=== PATIENT | male | born 1940 | race Caucasian/White ===

== ENCOUNTER → 2016-11-11 | Outpatient (CLI) | payer OTHER ==
[~2016-11-11] MED LIST: ASPI-589 PO; ATOR-24 PO; BIMA0.01 OP; CYNI1000 PO; INSPMPNVLG; METO50TA7 PO
[2016-11-11 13:01] LABS: BASO % 1.1 %; BASO ABS # 0.07 K/uL (0-0.2); COMPLETE YES; EOS % 2.3 %; HEMATOCRIT 35.9 % (42-52); IG% 0.2 %; LYMPH % 21.2 %; LYMPH ABS # 1.38 K/uL (1.2-3.4); MEAN CELL VOLUME 87.6 fL (80-100); MEAN CORPUSCULAR HEMOGLOBIN 27.8 pg (25-34); MEAN CORPUSCULAR HGB CONC 31.8 g/dl (32-36); MEAN PLATELET VOLUME 9.4 fL (7.4-10.4); MONO % 14.3 %; NEUT % 60.9 %; PLATELET COUNT 243 K/uL (130-400)
[2016-11-11 13:32] LABS: ESTIMATED AVERAGE GLUCOSE 171 mg/dl; HA1C FLAG Normal (Normal)
[2016-11-11 13:36] LABS: ALKALINE PHOSPHATASE 70 U/L (45-117); ALT/SGPT 25 U/L (12-78); AST/SGOT 10 U/L (15-37); BLOOD UREA NITROGEN 20 mg/dl (7-18); BUN/CREATININE RATIO 14.4 (10-20); CALCIUM 8.4 mg/dl (8.5-10.1); CARBON DIOXIDE 30 mmol/L (21-32); CHLORIDE 108 mmol/L (98-107); GLUCOSE 142 mg/dl (70-99); HDL CHOLESTEROL 57 mg/dl; MAGNESIUM 2.8 mg/dl (1.8-2.4); POTASSIUM 4.5 mmol/L (3.5-5.1); SODIUM 143 mmol/L (136-145)
[2016-11-11 13:39] LABS: ALB/GLOB RATIO 0.9 (0.9-2); CHOLESTEROL 124 mg/dl (0-200); CHOLESTEROL/HDL RATIO 2.2; LDL CHOLESTEROL CALCULATED 50 mg/dl; TRIGLYCERIDES 83 mg/dl (0-150); VERY LOW DENSITY LIPOPROT CALC 17 mg/dl
== END | disposition home or self-care (01) ==
LOC: C.LABMFLN 08:28
PROVIDERS: ATTEND Family Medicine
DX: D64.9 Anemia, unspecified (principal); E10.319 Type 1 diabetes mellitus with unspecified diabetic retinopathy without macular edema; E78.5 Hyperlipidemia, unspecified; I49.3 Ventricular premature depolarization

== ENCOUNTER → 2017-05-02 | Outpatient (CLI) | payer OTHER ==
[2017-05-03 07:08] LABS: ESTIMATED AVERAGE GLUCOSE 177 mg/dl; HA1C FLAG Normal (Normal)
== END | disposition home or self-care (01) ==
LOC: C.LABMFLN 11:07
PROVIDERS: ATTEND Physician Assistant
DX: E10.9 Type 1 diabetes mellitus without complications (principal)

== ENCOUNTER 2017-06-01 06:33 | Observation (INO) | payer OTHER ==
[2017-05-27 15:39] VITALS: BMI 26.0
[~2017-06-01] VITALS: Ht 172.7 cm; Wt 77.8 kg
[~2017-06-01 06:33] MED LIST changes: -BIMA0.01 OP; +BIMA0.01 OPR; +CYAN500T13 PO; -CYNI1000 PO; +LACTATED RINGER'S 1000ML 1,000 ML IV SCH; +MAGN200T6 PO; -METO50TA7 PO; +METO50TA8 PO
[2017-06-01 07:08] VITALS: BP 172/81; PULSE 108; TEMP 36.9; O2SAT 97; BMI 26.0
[2017-06-01] MEDS ORDERED: PROPOFOL IV EMULSION 10 MG/ML 100 ML VIAL IV ONE (07:43)
[2017-06-01] MEDS ORDERED: FENTANYL CITRATE INJ 50 MCG/1 ML 2 ML VIAL ONE (08:02)
[2017-06-01] MEDS ORDERED: PROPOFOL IV EMULSION 10 MG/ML 20 ML VIAL IV ONE (08:02)
[2017-06-01] MEDS ORDERED: LIDOCAINE HCL 2% 2 ML VIAL (20MG/ML) ONE ×2 (08:02→12:24)
[2017-06-01] MEDS ORDERED: MIDAZOLAM HCL 1 MG/ML 2ML VIAL ONE ×2 (08:02→09:42)
--- NOTE | 2017-06-01 08:13 | History & Physical Bridge Note ---
H&P Re-Evaluation Bridge Note: I have examined the patient, reviewed the History & Physical and in the interval since the performance of the History & Physical I have noted the following changes of clinical significance: No changes noted
[2017-06-01] MEDS ORDERED: FENTANYL CITRATE INJ 50 MCG/1 ML 2 ML VIAL IV PRN (08:30)
[2017-06-01] MEDS ORDERED: EpHEDrine SULFATE INJ 50 MG/ML AMP IV PRN (08:30)
[2017-06-01] MEDS ORDERED: HYDROmorphone INJ 1 MG/ML SYR IV PRN (08:30)
[2017-06-01] MEDS ORDERED: PHENYLEPHRINE 100MCG/ML 5ML SYR IV PRN (08:30)
[2017-06-01] MEDS ORDERED: ATROPINE SULFATE 0.1 MG/ML 5ML SYR IV PRN (08:30)
[2017-06-01] MEDS ORDERED: ONDANSETRON INJ 2 MG/ML 2 ML VIAL IV PRN (08:30)
[2017-06-01] MEDS ORDERED: HEPARIN SOD (PORCINE) 1000 UNIT/ML 10 ML VIAL ONE ×2 (08:45→12:25)
[2017-06-01] MEDS ORDERED: HEPARIN 25000 UNIT/500 ML D5W ONE (10:15)
--- NOTE | 2017-06-01 11:57 | [facility] Post Operative Brief Note ---
Immediate Operative Summary Operative Date Jun 01, 2017. Pre-Operative Diagnosis pvcs Post-Operative Diagnosis pvcs Procedure(s) Performed PVCs ablation, 3d mapping RVOT and LVOT regions, EPS Surgeon tu flores Mental Health Worker Surgeon(s) none Estimated Blood Loss <10cc Findings see official report Fluids (cc crystalloids) 1400cc Specimens none Drains none Anesthesia 2.5mg versed, 25mcg fentatnyl, 500mg propofol Complication(s) None Disposition PCU
--- NOTE | 2017-06-01 12:02 | Discharge Instructions ---
Discharge Instructions Date of Service Jun 01, 2017. Admission Reason for Admission: Symptomatic Premature Ventricular Contraction Discharge Discharge Diagnosis / Problem: pvc Discharge Goals Goal(s): Improve function Activity Recommendations Activity Limitations: as noted below Lifting Limitations: no more than 10 pounds (no heavy lifting or squating for 1 week) Shower/Bathe: tomorrow Driving or Machine Use: resume 1 day after discharge . Instructions / Follow-Up Instructions / Follow-Up ACTIVITY RECOMMENDATIONS: It is common to feel weak and fatigue for a few days. * Do not drive or operate any motorized equipment for the next 1 day. * Limit stair usage (2 or 3 trips a day only) for the next three days. * Do not lift anything heavier than 10 pounds for the next three days. * Do not engage in vigorous exercise or any sports for the next five days. * You may shower the day after your procedure, but do not immerse the area for three days. Cleanse the site gently with soap and water. SPECIAL CARE INSTRUCTIONS: * You may replace the pressure dressing or band-aid the morning after the procedure. * After your procedure, it is normal to have a small bruise or small lump at the site. Examine your site daily for any change in the bruise or lump, redness, swelling, drainage or numbness. Notify your doctor if any change. BLEEDING: * If there is a small amount of bleeding at the site, lie down and apply firm pressure with a clean cloth for ten minutes. When the bleeding stops, lie quietly keeping the procedure limb straight for six hours. Notify your doctor as soon as possible. * If the bleeding does not stop after ten minutes or if there is a large amount of bleeding or spurting, call 911 immediately. Continue to lie down and hold firm pressure until help arrives. SKIN IRRITATION: * You may experience some redness and/or swelling in the area where radiation was administered. If any skin irritation occurs, please contact your family physician. FOLLOW UP VISIT: Keep any scheduled doctor appointments. Current Hospital Diet Patient's current hospital diet: Diabetes Type 1 Diet, AHA Diet (Heart Healthy) Discharge Diet Recommended Diet: Diabetes Type 1 Diet Procedures Procedures Performed: PVCs ablation, 3d mapping RVOT and LVOT regions, EPS Pending Studies Studies pending at discharge: no Laboratory Results Hemoglobin A1c Test 05/02/17 11:10 Range/Units Estimated Average Glucose 177 mg/dl Hemoglobin A1c 7.8 H 4.5-5.6 % Medical Emergencies . Who to Call and When: Medical Emergencies: If at any time you feel your situation is an emergency, please call 911 immediately. . Non-Emergent Contact Non-Emergency issues call your: Lead Presser . . "Provider Documentation" section prepared by Haritha Corral. . VTE Core Measure Inpt VTE Proph given/why not?: Treatment not indicated
--- NOTE | 2017-06-01 12:08 | Discharge Summary ---
Discharge Summary Date of Service Jun 01, 2017. 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 PAC HLD DM on insulin pump Procedures: PVC ablation, EPS, 3d mapping of RVOT and LVOT regions Medication Reconciliation Continued Medications: Aspirin (Aspirin Adult Low Dose) 81 Mg Tab 1 TAB PO QPM PT HS DIRECTIONS FROM SURGEON Atorvastatin (Lipitor) 40 Mg Tab 1 TAB PO QPM for 30 Days, TAB 5 Refills Bimatoprost (Lumigan) 0.01 % Malissa 1 DROPS OPR HS for 90 Days, #7.5 ML 3 Refills Cyanocobalamin (Vitamin B12 500MCG) 500 Mcg Tab 500 MCG PO QPM, TAB Insulin Aspart (novoLOG INSULIN PUMP ) 1 Ea Inj 1 EA N/A UD, EA Magnesium Citrate (mg Suppleme (Magnesium Citrate) 200 Mg Tab 400 MG PO QPM Discontinued Medications: Metoprolol Succ (Toprol Xl) (Toprol-Xl) 50 Mg Tabcr 0.5 TAB PO QPM for 30 Days, TAB 5 Refills PT HAS INSTRUCTIONS FROM SURGEON Admission Information Physical Exam (per Admitting): aaox3, NAD NC/AT, EOMI Supple, No JVD Nrl S1/S2, no murmur, +PVCs CTA b/l no w/r/r soft nt/nd no edema b/l LE no focal deficits skin intact Hospital Course Pt admitted for elective PVC ablation due to frequent unifocal symptomatic PVCs. Pt underwent procedure without any complications-PVCs mapped to cecilia- septal region of the LV about 1 cm below the AV. Pt monitored overnight and discharged home in stable condition off metoprolol. Total time spent on discharge = 30 minutes This includes examination of the patient, discharge planning, medication reconciliation, and communication with other providers. Discharge Instructions ACTIVITY RECOMMENDATIONS: It is common to feel weak and fatigue for a few days. * Do not drive or operate any motorized equipment for the next 1 day. * Limit stair usage (2 or 3 trips a day only) for the next three days. * Do not lift anything heavier than 10 pounds for the next three days. * Do not engage in vigorous exercise or any sports for the next five days. * You may shower the day after your procedure, but do not immerse the area for three days. Cleanse the site gently with soap and water. SPECIAL CARE INSTRUCTIONS: * You may replace the pressure dressing or band-aid the morning after the procedure. * After your procedure, it is normal to have a small bruise or small lump at the site. Examine your site daily for any change in the bruise or lump, redness, swelling, drainage or numbness. Notify your doctor if any change. BLEEDING: * If there is a small amount of bleeding at the site, lie down and apply firm pressure with a clean cloth for ten minutes. When the bleeding stops, lie quietly keeping the procedure limb straight for six hours. Notify your doctor as soon as possible. * If the bleeding does not stop after ten minutes or if there is a large amount of bleeding or spurting, call 911 immediately. Continue to lie down and hold firm pressure until help arrives. SKIN IRRITATION: * You may experience some redness and/or swelling in the area where radiation was administered. If any skin irritation occurs, please contact your family physician. FOLLOW UP VISIT: Keep any scheduled doctor appointments.
[2017-06-01] MEDS ORDERED: IV FLUIDS COMPLETED PRN (12:15)
[2017-06-01] MEDS ORDERED: PHENYLEPHRINE 100MCG/ML 5ML SYR ONE (12:25)
--- NOTE | 2017-06-01 12:59 | Anesthesiology Progress Note ---
Anesthesia Post Op Note Date & Time Jun 01, 2017 at 12:59 Vital Signs Pain Intensity: 0 Vital Signs Past 12 Hours Date Time Temp Pulse Resp B/P (MAP) Pulse Ox O2 Delivery O2 Flow Rate FiO2 06/01/17 12:50 91 16 126/71 (89) 96 Room Air 143/65 (91) 06/01/17 12:35 89 16 133/77 (95) 96 Room Air 138/63 (88) 06/01/17 12:19 84 16 126/74 (91) 98 Room Air 06/01/17 12:09 98 16 137/83 (101) 98 Room Air 06/01/17 11:59 96 16 143/83 (103) 98 Room Air 06/01/17 07:08 36.9 108 18 172/81 (111) 97 Room Air Notes Mental Status: alert / awake / arousable, participated in evaluation Pt Amnestic to Procedure: Yes Nausea / Vomiting: adequately controlled Pain: adequately controlled Airway Patency, RR, SpO2: stable & adequate BP & HR: stable & adequate Hydration State: stable & adequate Anesthetic Complications: no major complications apparent
--- NOTE | 2017-06-01 13:47 | OPERATIVE REPORT ---
DATE OF OPERATION: 06/01/2017 PREOPERATIVE DIAGNOSIS: Symptomatic premature ventricular contractions. POSTOPERATIVE DIAGNOSIS: Same. PROCEDURE: Electrophysiology study, 3D mapping of the right ventricular outflow tract and left ventricular outflow tract for mapping of the PVCs, radiofrequency ablation of PVCs coming from the anteroseptal side of the left ventricle about a cm below the aortic valve. SURGEON: Haritha Corral. HUMAN SERVICES PROGRAM SPECIALIST: None. ANESTHESIA: Monitored anesthetic care administered via anesthesiology. Total of 2.5 mg of Versed, 25 mcg of fentanyl, 500 mg of Propofol. IV FLUIDS: 1300 mL. BLOOD LOSS: Less than 10 mL. COMPLICATIONS: None. CONDITION: Stable. URINE OUTPUT: Not applicable. SPECIMENS: None. FINDINGS: See below. DRAINS: None. INDICATIONS: This is a 77-year-old gentleman who has a past medical history of AVNRT, which he was status post slow pathway modification in November 2015, symptomatic unifocal PVCs, prior Holter in 2015 on propafenone showed 22%. However, off of propafenone this decreased to 7% on a Holter in February 2017, but he did not tolerate metoprolol due to increased fatigue and bradycardia and his PVCs remained symptomatic. He also has has past medical history of hyperlipidemia and diabetes on insulin pump. Due to the symptomatology of the PVCs he was recommended a PVC 3D mapping with possible ablation. CONSENT: Consent was obtained prior to the patient going into the electrophysiology lab. The patient was explained the risks, benefits, alternatives to the procedure. Risks include but not limited to sudden cardiac , cardiac arrhythmias, cerebrovascular accident, myocardial infarction, injury to the blood vessels, chamber of the heart or the zuni electrical system where he would need a permanent pacemaker, bleeding and infection. The patient understood these risks and agreed to the procedure as planned. Informed consent was obtained. DESCRIPTION OF THE PROCEDURE: The patient was brought into the electrophysiology lab in a fasting state. He was connected to continuous cardiac monitoring. A timeout was performed to ensure patient's identity and procedure correctly. The patient was prepped and draped over the bilateral groins in normal surgical standard fashion. Moderate anesthetic care was given throughout the procedure for patient's comfort level. [place] precautions were maintained throughout the procedure. First 10 mL of 1% lidocaine were given in the bilateral groins for local anesthesia. Using the modified Seldinger technique initially without the assistance of ultrasound Doppler vascular access was obtained; however, on the right femoral vein I hit the artery so I then got the Doppler and I noticed that the artery and vein seemed to be right on top of each other so I ended up getting venous access left femoral vein. It had a 4 [place] sheath that was there to monitor glucose levels and a 8.5 [place] sheath. He then used the PentaRay Biosense catheter to try to map some of the PVCs from the right ventricle. Of note, I kept easily going into the coronary sinus os and the PentaRay never was able to really get far up into the right ventricle outflow tract so I eventually swapped out the PentaRay for the SmartTouch DF curve 4 mm Biosense ablation catheter and we did 3D mapping of the PVCs from the right ventricular outflow tract. We mapped the earliest point to the septal side of the right ventricular outflow tract about 1 cm below the pulmonary valve. The local electrogram was always on time with the QRS of the PVCs, never early, but our pace maps were decent in the mid 90s and unipolar signals were QS in range, so we did hope for the best and try to give a few radiofrequency harkins in this area on the right ventricular outflow tract septal area at 40 [place] however this did not suppress the PVCs, so we then set up to go left-sided. I got femoral arterial access on the left femoral artery without any complications and an 8.5 [place] sheath was inserted in that femoral artery. The patient received heparin boluses throughout the procedure when we were on the left side to maintain ACT of greater than 200. The SmartTouch ablation catheter was then advanced to the aorta and retrogradely across the aortic valve. I have a little bit of trouble, but once I rotated the catheter a little bit to a different plane it went across the valve without any problems. We then started mapping the left ventricular outflow tract region for the PVCs and mapped them to the earliest point being on the anterior septal region of the left ventricular outflow tract, about 1 cm below the aortic valve. Of note, we did localize the His on both the right side and the left side of the heart and marked this on our 3D map. We were finding our near field local signal was about 25 milliseconds pre-QRS of our PVCs and our pace maps were 94%. We went on ablation at 30 burton and then we did some at 35 burton as well and ultimately suppressed the PVCs and we then monitored for over half an hour and I also woke up the patient and monitored him longer and did not see any PVCs. During our monitoring time I did do an electrophysiology study. The ablation catheter was removed from the left side of the heart and put back in the right side of the heart. We got the His signal and measured AH and HV, see below for the results. Then I placed the ablation catheter along the high right atrium and obtained AV Wenckebach and AV amanuel ERP, see below for results. Then I ultimately placed the ablation catheter in the right ventricle and got an RV ERP, see below for results. ELECTROPHYSIOLOGY STUDY FINDINGS: 1. MA interval was 152 milliseconds, QRS 78 milliseconds, QT 336 milliseconds. 2. Sinus cycle length was 606 milliseconds, AH 102 milliseconds, HV 50 milliseconds. 3. AV Wenckebach was 340 milliseconds. 4. AV node DRP was 600/260 and 400/260. 5. RV ERP was 500/200 and 400/220. Of note, when I was doing the electrical EP electrophysiology study with atrial burst pacing, he did go into a brief SVT of some sort. It was not sustained. It was at a rate of 153 beats per minute and it terminated on its own. The sheaths were ultimately pulled and manual compression was held once the ACT was below 150 and manual compression established hemostasis. IMPRESSION: 1. Successful radiofrequency ablation of premature ventricular contractions originating from the anteroseptal region of the left ventricular outflow tract, about 1 cm below the aortic valve. 2. Normal arteriovenous amanuel function. PLAN: Monitor patient overnight, 12-lead ECG. He can stop his metoprolol. Continue his other medicines. He is not to do any heavy lifting or squatting for 1 week. He should follow up in my [place] office in 1 month. I attest to the content of the Intraoperative Record and any orders documented therein. Any exception s are noted below.
[2017-06-01 14:32] VITALS: BP 126/66; PULSE 86; TEMP 36.8; O2SAT 96; Ht 172.7 cm; Wt 77.8 kg
--- NOTE | 2017-06-01 14:52 | NUR ---
Patient received to PCU room 241-2, s/p ablation. A/O X4, SR on the monitor, vitals stable in room air. Patient lying flat, bilateral groin dressings dry and intact. at the bedside. Continue to monitor.
[2017-06-01] MEDS ORDERED: GLUCOSE 40% GEL 15 GM TUBE PO PRN (15:15)
[2017-06-01] MEDS ORDERED: DEXTROSE 50% 50 ML SYR IV PRN (15:15)
[2017-06-01] MEDS ORDERED: GLUCOSE 10 TABS/TUBE PO PRN (15:15)
[2017-06-01] MEDS ORDERED: GLUCAGON FOR INJ 1 MG VIAL SQ PRN (15:15)
[2017-06-01] MEDS ORDERED: INSULIN ASPART 100 UNITS/ML VIAL SC PRN (15:15)
[2017-06-01 15:42] VITALS: BP 126/68; PULSE 79; TEMP 36.7; O2SAT 98
--- NOTE | 2017-06-01 16:30 | NUR ---
A: PT FULLY ASSESSED, SEE EMR. VERY PLEASANT AND COOPERATIVE WITH CARE. A&O, VSS, DENIES PAIN. LUNG SOUNDS CLEAR, ON ROOM AIR. NO SOB OR RESPIRATORY DISTRESS NOTED. NSR ON MONITOR. TRACE BILAT LOWER EXTREMITY EDEMA. BILAT GROIN DRESSINGS CLEAN, DRY, INTACT. NO DRAINAGE, REDNESS, OR HEMATOMA; SOFT, NON-TENDER. AT BEDSIDE. ENCOURAGED TO RING FOR ASSISTANCE. CALL [place] WITHIN REACH, WILL CONTINUE TO MONITOR.
[2017-06-01] MEDS: NovoLOG INSULIN PUMP SCH ×2 (17:14→21:11)
--- NOTE | 2017-06-01 18:27 | NUR ---
NOTIFIED DR MCCLAIN REGARDING PATIENT HAVING PVC'S AGAIN. NO NEW ORDERS RECEIVED. WILL CONTINUE TO MONITOR.
[2017-06-01] MEDS: BIMATOPROST 0.01% OP SOLN 2.5 ML BTL OPR SCH ×2 (19:11→21:11)
[2017-06-01] MEDS: ASPIRIN 81 MG ECTAB PO SCH ×2 (19:12→21:11)
[2017-06-01] MEDS: MAGNESIUM OXIDE 400 MG TAB PO SCH ×2 (19:12→21:11)
[2017-06-01] MEDS: ATORVASTATIN 40 MG TAB PO SCH ×2 (19:12→21:11)
[2017-06-01 20:29] VITALS: BP 124/60; PULSE 85; TEMP 37; O2SAT 97
[2017-06-01] MEDS ORDERED: CYANOCOBALAMIN 500 MCG TAB (VIT B-12) PO SCH (21:00)
[2017-06-01 23:26] VITALS: BP 117/63; PULSE 83; TEMP 36.7; O2SAT 98
--- NOTE | 2017-06-02 | NUR ---
A. Patient assessed, resting in bed. He is AAOx4, pleasant and cooperative. He is denying any pain or SOB. VSS. NSR with HR in 70s with PVCs. Home CPAP on. Voiding in toilet. Ambulating on own without difficulty. IV intact and patent. Insulin pump intact. Bilateral groin sites c/d/i. He was reminded on use of call agee and calling if needing anything.
[2017-06-02 03:44] VITALS: BP 109/58; PULSE 71; TEMP 36.6; O2SAT 98
--- NOTE | 2017-06-02 04:00 | NUR ---
A. Patient reassessed, resting in bed. No changes at this time. Sleeping well throughout the night. VSS. NSR with HR in 70s with PVCs. Wearing home CPAP. Voiding in toilet. He was reminded to use call agee if needing anything.
[2017-06-02] MEDS: NovoLOG INSULIN PUMP SCH (07:00)
--- NOTE | 2017-06-02 08:00 | NUR ---
A: denies complaints at present. consumed 100% breakfast. saline lock intact left hand, site clear. bilateral groin dressings C/D/I. +2 pedal pulse bilaterally. denies difficulty voiding.
[2017-06-02 08:20] VITALS: BP 127/70; PULSE 91; TEMP 36.6; O2SAT 95
--- NOTE | 2017-06-02 08:33 | Cardiology Follow-Up ---
Subjective Subjective Date of Service: Jun 02, 2017. Pt evaluation today including: conversation w/ patient, physical exam, chart review, review of studies Pain: none Additional Details: a few palpitations when he got up last night and this morning Review of Systems Constitutional: No fatigue Respiratory: No shortness of breath, No dyspnea on exertion Cardiac: + palpitations, No chest pain, No edema Abdomen: No vomiting, No diarrhea Objective Vital Signs Last Vital Signs Documentation Date Time Temp Pulse Resp B/P (MAP) Pulse Ox O2 Delivery O2 Flow Rate FiO2 06/02/17 08:20 36.6 91 18 127/70 (89) 95 Room Air Physical Exam: General Appearance: WD/WN, no apparent distress Eyes: bilateral eyes PERRL, bilateral eyes EOMI Neck: supple, no JVD Respiratory/Chest: chest non-tender, lungs clear Cardiovascular: regular rate, rhythm, no edema, no JVD, no murmur, + extra beats Abdomen: soft (b/l groins soft no hematoma, no ecchymosis) Extremities: no pedal edema Neurologic/Psychiatric: alert, oriented x 3 Skin: normal color, warm/dry, no rash Assessment and Plan Impression: 1. PVCs s/p PVC ablation orginating from the cecilia-septal LVOT-was successfully but is now having some occasional PVC some different morphology though 2. s/p AVNRT ablation 2015 3. DM type 1 on insulin pump Plan: -Ok to discharge home today -Stop metoprolol -Continue other home meds -No heavy lifting or squatting for 1 week -The PVCs he is having some are not his ones that were ablated but some have a similar morphology-would monitor for now -f/u 1 month or sooner if necessary Discharge planning: home Medications: Medications Administered Medications (Trade) Dose Ordered Sig/Sherwin Route Start Time Stop Time Status Last Admin Dose Admin Lactated Ringer's 1,000 ml @ 15 mls/hr Q24H IV 06/01/17 06:00 06/02/17 05:59 DC 06/01/17 07:44 15 MLS/HR Aspirin (Ecotrin Tab) 81 mg QPM PO 06/01/17 21:00 07/01/17 20:59 06/01/17 21:11 81 MG Atorvastatin Calcium (Lipitor Tab) 40 mg QPM PO 06/01/17 21:00 07/01/17 20:59 06/01/17 21:11 40 MG Cyanocobalamin (Vitamin B-12 Tab) 500 mcg QPM PO 06/01/17 21:00 07/01/17 20:59 06/01/17 19:12 500 MCG Insulin Aspart (novoLOG INSULIN PUMP) 1 ea ACHS N/A 06/01/17 16:15 07/01/17 16:14 06/01/17 21:11 1 EA Bimatoprost (Lumigan 0.01%) 1 drops HS OPR 06/01/17 21:00 07/01/17 20:59 06/01/17 21:11 1 DROPS Magnesium Oxide (Mag-Ox Tab) 400 mg QPM PO 06/01/17 21:00 07/01/17 20:59 06/01/17 21:11 400 MG Lab Results: ECG: SR Rhythm Strip today: SR with some-rare multi-focal PVCs Telemetry: SR with occasional PVCs Last 24 Hours Test 06/01/17 10:36 06/01/17 10:38 06/01/17 10:55 06/01/17 11:11 Kaolin Activated Coagulation Time 340 SECONDS 241 SECONDS 186 SECONDS Bedside Glucose 168 mg/dl Test 06/01/17 11:32 06/01/17 11:57 06/01/17 12:35 06/01/17 13:04 Kaolin Activated Coagulation Time 202 SECONDS 191 SECONDS 175 SECONDS 164 SECONDS Test 06/01/17 13:29 06/01/17 13:46 06/01/17 17:14 06/01/17 20:48 Kaolin Activated Coagulation Time 153 SECONDS Bedside Glucose 117 mg/dl 92 mg/dl 225 mg/dl Test 06/02/17 07:22 Bedside Glucose 133 mg/dl
[2017-06-02 09:25] VITALS: BP 127/70; PULSE 91; TEMP 36.6; O2SAT 95
--- NOTE | 2017-06-02 10:30 | NUR ---
A: saline lock removed with cath intact, site clear, dry dressing applied. discharge instructions given written and verbally to patient with understanding verbalized. taken to entrance via wheelchair by volunteer. d/c to home via private vehicle with personal belongings.
== END 2017-06-02 10:30 | disposition home or self-care (01) ==
LOC: C.ACU 06:33 → C.2T 12:00 → ENRESERV 12:26
PROVIDERS: ADMIT Internal Medicine; ATTEND Internal Medicine
DX: I49.3 Ventricular premature depolarization (principal); I49.1 Atrial premature depolarization; E11.22 Type 2 diabetes mellitus with diabetic chronic kidney disease; G47.33 Obstructive sleep apnea (adult) (pediatric); N18.9 Chronic kidney disease, unspecified; I25.10 Atherosclerotic heart disease of native coronary artery without angina pectoris; I12.9 Hypertensive chronic kidney disease with stage 1 through stage 4 chronic kidney disease, or unspecified chronic kidney disease; E78.5 Hyperlipidemia, unspecified; H40.9 Unspecified glaucoma; Z79.4 Long term (current) use of insulin; Z79.82 Long term (current) use of aspirin; Z79.899 Other long term (current) drug therapy; Z98.41 Cataract extraction status, right eye; Z98.42 Cataract extraction status, left eye; Z98.890 Other specified postprocedural states

== ENCOUNTER → 2017-09-06 | Outpatient (CLI) | payer OTHER ==
[~2017-09-06] MED LIST changes: -LACTATED RINGER'S 1000ML 1,000 ML IV SCH; -METO50TA8 PO
[2017-09-06 18:09] LABS: ALBUMIN 3.3 gm/dl (3.4-5.0); BLOOD UREA NITROGEN 25 mg/dl (7-18); CALCIUM 8.9 mg/dl (8.5-10.1); CARBON DIOXIDE 29 mmol/L (21-32); GLUCOSE 143 mg/dl (70-99); PHOSPHORUS 2.7 mg/dl (2.5-4.9); POTASSIUM 4.4 mmol/L (3.5-5.1); SODIUM 139 mmol/L (136-145)
[2017-09-07 05:59] LABS: HEMOGLOBIN A1C 7.9 % (4.5-5.6)
== END | disposition home or self-care (01) ==
LOC: C.LABMFLN 13:51
PROVIDERS: ATTEND Physician Assistant
DX: E10.319 Type 1 diabetes mellitus with unspecified diabetic retinopathy without macular edema (principal)